=== PATIENT | female | born 1950 | race Caucasian/White ===

== ENCOUNTER 2024-07-14 12:57 | Day surgery (SDC) | payer OTHER, SELFPAY ==
[2024-07-14] VITALS (31 sets, daily range): BP systolic 98–138; BP diastolic 51–100; BMI 25.0
[2024-07-14 02:58] LABS: % Basophils 0.4 % (0-2); % Eosinophils 0.4 % (0-6); % Immature Granulocytes 0.3 % (0-0.5); % Lymphocytes 11.1 % (20.5-51.1); % Neutrophils 81.8 % (42.2-75.2); Absolute Basophils 0.1 10^3/uL (0-0.2); Absolute Eosinophils 0.1 10^3/uL (0-0.7); Absolute Lymphocytes 1.4 10^3/uL (1.2-3.4); Absolute Monocytes 0.7 10^3/uL (0.1-0.6); Absolute Neutrophils 10.1 10^3/uL (1.4-6.5); Hematocrit 40.1 % (37.0-47.0); Hemoglobin 13.7 g/dL (12.0-16.0); Mean Corp Hgb Conc. 34.2 g/dL (33.0-37.0); Mean Corpuscular Volume 90.7 fL (81.0-99.0); Nucleated Red Blood Cells % 0 %; Platelet Count 289 10^3/uL (130-400); Red Blood Cell Count 4.42 10^6/uL (4.20-5.40); Red Cell Dist. Width 12.4 % (11.5-14.5); White Blood Cell Count 12.4 10^3/uL (4.8-10.8)
[2024-07-14 03:21] LABS: ALT (SGPT) 46 U/L (0-35); AST (SGOT) 60 U/L (14-36); Albumin 4.1 g/dl (3.5-5.0); Alkaline Phosphatase 89 U/L (38-126); Blood Urea Nitrogen 23 mg/dl (7-17); Calcium 10.2 mg/dl (8.4-10.2); Carbon Dioxide 32 mmol/L (22-30); Chloride 103 mmol/L (98-107); Glucose 143 mg/dl (70-99); Lipase 353 U/L (23-300); Potassium 4.6 mmol/L (3.5-5.1); Sodium 140 mmol/L (135-145); Total Bilirubin 1.2 mg/dl (0.2-1.3); Total Protein 7.2 g/dl (6.3-8.2); eGFR > 60.00
--- NOTE | 2024-07-14 06:52 | ED.GENMED ---
History of Present Illness
General
Chief Complaint: Abdominal Pain
Source: patient, records and family
Exam Limitations: none
Time Seen by Provider: 07/14/24 06:21
Nursing documentation reviewed up to this point in time: agreed with
History of Present Illness
History of Present Illness:
74-year-old female presents with fourth episode of upper abdominal pain that radiates into her back, onset a few months ago, initially improved with a heating pad, last night after eating dinner she had pain all a bit worse than normal with nausea
did not improve with a heating pad vomiting came to the ER she has had her appendix removed, still has her gallbladder, nondrinker non-smoker, suffers from an arrhythmia and valvular disease on propranolol, takes no blood thinners her insurance follow up specialist
is Dr. Conner Galeas her prior surgeon was Dr. Piotr Casas
Past History
Past History
ED Past Medical History: Other (Mitral insufficiency, hypoglycemia)
Social History
Tobacco: Non-smoker (Arrhythmia, leaky phallus, hypoglycemia)
Alcohol: None
Family History
Family History: Other (Hypertension,)
Review of Systems
Review of Systems
All Other Systems: Not applicable
Constitutional: Denies fever or fatigue
EENT: Reports no symptoms
Respiratory: Reports no symptoms
Cardiac: Reports no symptoms
ABD/GI: Reports abdominal pain, nausea and vomiting
: Reports no symptoms
Musculoskeletal: Reports no symptoms
Skin: Reports no symptoms
Hematologic/Lymphatic: Reports no symptoms
Phy Exam
Physical Exam
Physical Exam:
Physical Exam
General: no apparent distress, not acutely ill
Neck: No jaundice no pallor
Heart: s1/s2 regular rate and rhythm, no murmur. equal radial pulses.
Lungs: no acute respiratory distress. clear bilaterally
Abdomen: Soft nontender
Neuro: alert and oriented. no focal neurological deficits
Skin: no rash
Psychiatric: well kept. interactive and cooperative
Extremities: no edema.
Course
Orders/Labs/Results
Orders:
Orders
07/14/24 02:48
Complete Blood Count/With Diff Urgent
Comprehensive Metabolic Panel Urgent
Lipase Urgent
07/14/24 02:57
ECG [Electrocardiogram (*1)] Urgent
Reason for Study: Abdominal Pain
EKG- Treatment ONCE
07/14/24 06:37
0.9% Sodium Chloride 1000 ml [Nss] 1,000 ml IV BOLUS
07/14/24 06:38
US Abdomen Complete/Upper Urgent
Comment:
Reason For Exam: pain lft up
07/14/24 07:42
SURGICAL CONSULT Urgent
Consulting Provider: Jeffry Chacko
Was physician already notified: Yes
07/14/24 07:51
HYDROmorphone [Dilaudid] 0.25 mg IV NOW STA
Ondansetron Injectable [Zofran] 4 mg IV NOW STA
Abnormal Lab Results
07/14/24
02:48
WBC 12.4 H 10^3/uL
(4.8-10.8)
Absolute Neuts (auto) 10.1 H 10^3/uL
(1.4-6.5)
Absolute Monos (auto) 0.7 H 10^3/uL
(0.1-0.6)
Neutrophils % 81.8 H %
(42.2-75.2)
Lymphocytes % 11.1 L %
(20.5-51.1)
Carbon Dioxide 32 H mmol/L
(22-30)
BUN 23 H mg/dl
(7-17)
Glucose 143 H mg/dl
(70-99)
AST 60 H U/L
(14-36)
ALT 46 H U/L
(0-35)
Lipase 353 H U/L
(23-300)
07/14/24 02:48
07/14/24 02:48
Vital Signs
Initial and Last Documented VS:
Initial Vital Signs
Temp Pulse Resp BP Pulse Ox
97.5 F 64 20 100/70 98
07/14/24 02:32 07/14/24 02:32 07/14/24 02:32 07/14/24 02:32 07/14/24 02:32
Last Documented Vital Signs
Temp Pulse Resp BP Pulse Ox
97.7 F 71 16 111/59 99
07/14/24 07:51 07/14/24 07:51 07/14/24 07:51 07/14/24 07:51 07/14/24 07:51
MDM/Problems Addressed
Differential Diagnosis Includes:
Biliary colic, pancreatitis GERD reflux less likely ACS does not appear to be obstructed
MDM/Problems Addressed:
Upper abdominal pain nausea
Chronic conditions affecting care: Arrhythmia and Previous abdomnial surgery
Acute Exacerbation and/or Progression of Chronic Illness: Arrhythmia and Previous abdomnial surgery
*Radiology
Radiology exam reviewed: radiology read reviewed
*Pulse Oximetry
Patient hypoxic: no
*Oil Painter Interpretation
Rate: normal
Interpretation: normal
Rhythm: sinus
*Critical Care Note
Total Time (30-74mins, 75-104mins- exclusive of procedures): Not Applicable
Update Note
Update Note:
7:45 AM update ultrasound noted consistent with acute cholecystitis, message sent to on-call general surgery
ED Attending Note
-
Portions of this chart may have been created with voice recognition software.� Occasional wrong word or��sound alike� substitutions may have occurred due to the inherent limitations of voice recognition software.
Discharge Plan
Departure
Patient Disposition: Admit
Date of Disposition: 07/14/24
Time of Disposition: 08:11
Admit to: Med/Surg
Presentation/result/management discussed w/ accepting MD/DO: LIU
Patient with high blood pressure during this ER visit?: No
Condition: Good
Discharge Problem:
Acute calculous cholecystitis
Prescriptions:
No Action
propranolol 20 mg Tablet
20 mg PO QID
cholecalciferol (vitamin D3) [Vitamin D3] 50 mcg (2,000 unit) Tablet
50 mcg PO DAILY
ibuprofen [Advil] 200 mg Tablet
400 mg PO DAILYPRN PRN (Reason: MILD PAIN)
Referrals:
Lanyd Patrick DO [Family Provider] -
Interventions
Interventions:
*Risk Screen - Suicide Last Done: 07/14/24 02:32
*General Assessment Last Done: 07/14/24 04:00
*Neglect/Abuse Screening Last Done: 07/14/24 02:32
*ED- Fall Risk Assessment Last Done: 07/14/24 04:00
*ED COVID-19 Vaccine History Last Done: 07/14/24 04:00
PT-Ttfrif-Ryurcvuulj Assessment Last Done: 07/14/24 04:00
Discharge Date and Time
Print Language: [employer] [place] [employer]
[2024-07-14] MEDS: NSS 1000 IV (06:55)
--- NOTE | 2024-07-14 11:36 | CON.GS ---
Consultation
-
Requesting Provider: Geovani
Performing Provider: Ginna
Reason for Consultation: Abd pain
Medical History
-
Chief Complaint: Abd pain
History of Present Illness:
74F with acute onset abd pain that began last night, localized to right uppr quadrant with radiation to epigastrium, progressive and severe. Several similar episodes over past few weeks. Had eggs and fried potatoes for dinner prior to onset. Pain
worsened throuhg the night, a/w nausea and 1 episode emesis. Denies f/c. Denies changes to stool or urine. Presently her pain has totally resolved.
Past Medical History
Past Medical History: Other (mitral regurg, hypoglycemia)
Past Surgical History: Appendectomy and Other (open surgery for nephrolithiasis on the right x2)
Social History
Tobacco: Non-Smoker
Alcohol: None
Drug: None
Personal:
Living: With Family
Family History
Family History: Reviewed & Noncontributory
Allergies / Home Medications
Allergy/AdvReac Type Severity Reaction Status Date / Time
meperidine HCl [From Demerol] Allergy Unknown Verified 07/14/24 02:36
Tetracyclines Allergy Unknown Verified 07/14/24 02:36
cat gut stitches Allergy Unknown Uncoded 07/14/24 02:36
�Medication �Instructions �Recorded �Confirmed �Type
cholecalciferol (vitamin D3) 50 50 mcg PO DAILY 11/24/22 07/14/24 History
mcg (2,000 unit) tablet (Vitamin
D3)
propranolol 20 mg tablet 20 mg PO QID 11/24/22 07/14/24 History
ibuprofen 200 mg tablet (Advil) 400 mg PO DAILYPRN PRN MILD PAIN 07/14/24 07/14/24 History
Review of Systems
-
A 10 point review of systems was completed, and was negative except as per HPI.
Physical Exam
Vital Signs
Temp Pulse Resp BP Pulse Ox
97.7 F 58 16 107/51 97
07/14/24 07:51 07/14/24 10:30 07/14/24 10:30 07/14/24 10:00 07/14/24 10:00
07/13/24 07/14/24 07/15/24
06:59 06:59 06:59
Actual Weight 62 kg
Body Mass Index (BMI) 25.0
Lab Results
07/14/24 02:48
07/14/24 02:48
WBC 12.4 10^3/uL (4.8-10.8) H 07/14/24 02:48
Hgb 13.7 g/dL (12.0-16.0) 07/14/24 02:48
Hct 40.1 % (37.0-47.0) 07/14/24 02:48
Plt Count 289 10^3/uL (130-400) 07/14/24 02:48
Abs Immat Gran (auto) 0.0 10^3/uL (0-0.05) 07/14/24 02:48
Neutrophils % 81.8 % (42.2-75.2) H 07/14/24 02:48
Physical Exam
General: Well Developed, Well Nourished and No Apparent Distress
HEENT: Normocephalic and Anicteric
GI: Soft, Non Tender and Non Distended
Skin: Warm and Dry
Neuro: AO x 3
Psych: Calm
Data Reviewed
-
Ultrasound: Image Personally Visualized and interpreted, Report Reviewed by me, Discussed with Physician and Discussed with Patient
Labs: Labs Reviewed by me and Discussed with Patient
Old Records: Reviewed
Assessment / Plan
-
74F with biliary colic
AFVSS, pain has resolved, exam benign
Mild leukocytosis noted, LFTs mildly elevates
USD with stones, GBWT to 5mm, CBD 5mm, possible eall edema but no distinct PCF
Options were discussed including CCY with cholangiogram today vs PO challenge and interval operation
She prefers to avoid future similar episodes and wishes to proceed with surgery today
Risks, benefits, complications and alternatives were discussed at length including but not limited to need for ERCP, conversion t open, injury to intra-abdominal structures including liver, bile ducts, intestine, bleeding, infection and the pt
freely signed the consent.
OCTOR for rCCY with cholangiogram
IV abx and SCQ ordered
[2024-07-14] MEDS: CEFOTAN 2000 MG IV (12:05)
[2024-07-14] MEDS: STERILE WATER FOR INJECTION 10 ML IV (12:05)
--- NOTE | 2024-07-14 13:56 | OR.RPT ---
Operative Report
Operative Report
Primary Surgeon: Ginna
Assisting: Bernabe ORTEGA
Pre-op Diagnosis: Biliary colic
Post-op Diagnosis: Chronic cholecystitis
Procedure Performed: Robot assisted laparoscopic cholecystectomy with cholangiogram
Anesthesia Type: GETA
Specimen / Cultures: Gallbladder
Estimated Blood Loss: 5cc
Complications: None immediate
Operative Findings: Softly distended gallbladder with thickened edematous wall, cholangiogram with free flow of contrast into duodenum, opacification of bile ducts without filling defects
Date of Surgery:� 07/14/24
Indications: This 74F developed symptomatic cholelithiasis. Lab work showed mildly elevated liver enzymes. Imaging showed no ductal dilation. Laparoscopic cholecystectomy with robotic assist and cholangiogram was elected.
Description of procedure: The patient was placed on the operating table in the supine position. General anesthesia was induced. A time-out was completed verifying correct patient, procedure, site, positioning, and special equipment prior to
beginning this procedure. An orogastric tube was placed. The abdomen was prepped and draped in the usual sterile fashion. A stab incision was made in left upper quadrant and the Veress needle was inserted. Proper position was confirmed by aspiration
and saline meniscus test. The abdomen was insufflated with carbon dioxide to a pressure of 12mmHg. The patient tolerated insufflation well.
A 8mm trocar was then inserted above the umbilicus through the existing hernia defect. The laparoscope was inserted and the abdomen inspected. No injuries from initial trocar placement or Veress needle insertion were noted. Additional 8mm trocars
were then inserted in the following locations: two in the right lower quadrant and to the left of the umbilicus and just above. The abdomen was inspected and no abnormalities were found. Filmy omental adhesions to the gallbladder were taken down
with electrocautery. The table was placed in the reverse Trendelenburg position with the right side up. The dome of the gallbladder was grasped with an atraumatic grasper and retracted over the dome of the liver. The infundibulum was then grasped
with an atraumatic grasper and retracted toward the right lower quadrant. This maneuver exposed Calot�s triangle. The gallbladder was softly distended and significant wall edema and thickening was noted. The peritoneum overlying the gallbladder
infundibulum was then incised and the cystic duct and cystic artery identified and circumferentially dissected so that a clear view of the liver was achieved through a window between the cystic duct an cystic artery. At this time, the only two
structures going into the gallbladder were the cystic artery and cystic duct. The common duct was identified with ICG and protected.
A max was made in the cystic duct and a cholangiogram catheter was passed through a max in the abdominal wall and threaded into the cystic duct and secured with a 2-0 silk tie. A cholangiogram was obtained that showed free flow of contrast into
duodenum, and opacification of bile ducts without filling defects. The catheter was removed.
The cystic duct was then doubly clipped and divided. The cystic artery was controlled with bipolar and divided. The gallbladder was then dissected from its peritoneal attachments by electrocautery. The gallbladder was removed using an endoscopic
retrieval bag placed through the umbilical port. The gallbladder was passed off the table as a specimen. The gallbladder fossa was closely inspected. There was no evidence of bleeding from the gallbladder fossa or cystic artery or leakage of the
bile from the cystic duct stump. The umbilical trocar site was closed at the fascial level with 2-0 PDS. Secondary trocars were removed under direct vision and noted to be hemostatic. The abdomen was allowed to collapse. The skin was closed with
subcuticular sutures of 4-0 monocryl and topical skin adhesive. The orogastric tube was removed.
The patient tolerated the procedure well and was taken to the postanesthesia care unit in stable condition.
[2024-07-14] MEDS: HEPARIN SC (16:00)
[2024-07-14] MEDS: NORMOSOL-R/PLASMALYTE-A 1000 IV (16:02)
--- NOTE | 2024-07-14 16:39 | PTCARENOTE ---
pt admitted from [facility]. aaox3. states min discomfort in abd no pain med wanted at this time. 5 lap sites seen over abd clean dry. ivf running as ordered. pt at bedside reviewed plan of care.
[2024-07-14] MEDS: TYLENOL 650 MG PO (17:45)
[2024-07-14] MEDS: INDERAL 20 MG PO (19:37)
[2024-07-14] MEDS: HEPARIN 5000 UNITS SC (19:37)
[2024-07-15] MEDS: NORMOSOL-R/PLASMALYTE-A 1000 IV (01:40)
[2024-07-15 03:00] VITALS: BP 108/55
--- NOTE | 2024-07-15 05:58 | DOWNTIME ---
There was a [employer] Client Bench Repair Technician Downtime on 07/15/2024 from 0100 to 07/16/2023 at 0420 . Downtime documentation of patient's care, including medication administrations, has been reconciled in the electronic record per guidelines. Refer to the
patient's paper chart under the miscellaneous tab to see printed paper medication records and downtime forms.
[2024-07-15 07:31] VITALS: BP 97/52
[2024-07-15] MEDS: TYLENOL 650 MG PO (08:58)
[2024-07-15] MEDS: HEPARIN 5000 UNITS SC (08:58)
[2024-07-15 09:01] VITALS: BP 106/53
[2024-07-15] MEDS: NORMOSOL-R/PLASMALYTE-A IV (09:03)
[2024-07-15] MEDS: INDERAL PO (10:00)
[2024-07-15 11:24] VITALS: BP 102/42
--- NOTE | 2024-07-15 12:03 | W.PN.GS2 ---
Today's Communication / Plan
-
DC home
Assessment / Plan
-
74F POD1 s/p rCCY with cholangiogram
Doing well post-op, meets criteria for DC
Subjective Data
-
Date of Service: July 15, 2024
AFVSS, ambulating, voiding, to PO, pain controlled
Objective Data
-
Intake and Output
07/14/24 07/15/24 07/16/24
06:59 06:59 06:59
Intake Total 300 / 300
Balance 300 / 300
Intake:
Oral fluids 300 / 300
Other:
Number of approximated MODERATE 2 2
amounts of urine
Vital Signs
Temp Pulse Resp BP Pulse Ox
98.3 F 61 17 102/42 96
07/15/24 11:24 07/15/24 11:24 07/15/24 11:24 07/15/24 11:24 07/15/24 11:24
Lab Results
07/14/24 02:48
07/14/24 02:48
Calcium 10.2 mg/dl (8.4-10.2) 07/14/24 02:48
Total Bilirubin 1.2 mg/dl (0.2-1.3) 07/14/24 02:48
AST 60 U/L (14-36) H 07/14/24 02:48
ALT 46 U/L (0-35) H 07/14/24 02:48
Alkaline Phosphatase 89 U/L (38-126) 07/14/24 02:48
Total Protein 7.2 g/dl (6.3-8.2) 07/14/24 02:48
Albumin 4.1 g/dl (3.5-5.0) 07/14/24 02:48
Physical Exam
-
Gen: NAD
Abd: soft, approp ttp, incisions cdi
Patient has a ram catheter: No
Patient has a central line: No
--- NOTE | 2024-07-15 12:04 | W.DS.TRANS ---
DC Summary - Operations Management Trainee
-
Discharge Instructions:
Discharge Diagnosis/Procedures Robot assisted laparoscopic cholecystectomy with
cholangiogram
Diet No restrictions
Activity No strenuous activity
Driving Restrictions No driving for 24 hours
Bathing Restrictions OK to Shower
Wound Care Allow skin glue to flake off on its own.
Instructions: Cholecystectomy - Discharge instructions
Stand-Alone Forms:
Changes to Home Medications: Yes
Discharge Medications:
DC Medications w/original date entered in [employer]
cholecalciferol (vitamin D3) 50 mcg (2,000 unit) tablet (Vitamin D3) 50 mcg PO DAILY 11/24/22
propranolol 20 mg tablet 20 mg PO QID 11/24/22
ibuprofen 200 mg tablet (Advil) 400 mg PO DAILYPRN PRN MILD PAIN 07/14/24
Home Medication Changes
Holding propranolol next day or two with BP monitoring at home and Cardiology f/u without delay
Pending Results: No
[2024-07-15 12:23] VITALS: BP 102/54
== END 2024-07-15 12:25 | disposition home or self-care (01) ==
LOC: SDS 12:57
PROVIDERS: Emergency Medicine; ATTENDING PHYSICIAN Surgery; EMERGENCY PHYSICIAN Emergency Medicine; FAMILY PHYSICIAN Family Medicine
DX: K80.10 Calculus of gallbladder with chronic cholecystitis without obstruction (principal)
CPT/HCPCS: 47563; 88304; 74300; 76000; 76700; 80053; 83690; 85025; 93005; 96361; 96374; 99285

== ENCOUNTER → 2024-10-03 10:17 | Outpatient (REF) | payer OTHER, SELFPAY | LOC: PAVMRI 10:17 | PROVIDERS: ATTENDING PHYSICIAN Orthopaedic Surgery; FAMILY PHYSICIAN Family Medicine | DX: M25.569 Pain in unspecified knee (principal) | CPT/HCPCS: 73721 ==

== ENCOUNTER → 2024-12-29 13:54 | Outpatient (REF) | payer OTHER, SELFPAY | LOC: HWRCS 13:54 | PROVIDERS: ATTENDING PHYSICIAN Internal Medicine Cardiovascular Disease; FAMILY PHYSICIAN Family Medicine | DX: I34.1 Nonrheumatic mitral (valve) prolapse (principal); I35.1 Nonrheumatic aortic (valve) insufficiency | CPT/HCPCS: 93306 ==